=== PATIENT | female | born 1940 | race Caucasian/White ===

== ENCOUNTER 2018-04-29 21:25 | Inpatient (IN) | payer MEDICARE, OTHER ==
[~2018-04-29] VITALS: Ht 157.5 cm; Wt 83.5 kg
[~2018-04-29 21:25] MED LIST: ACETAMINOPHEN650 M5 PO; ACYCLOVIR 400400 MG PO; ASPIRIN81 M2 PO; BAYER CHEWABLE81 MG PO; CARAFATE 1 GM TA1 G1 PO; CELEXA 10 MG TA10 M1; CELEXA40 MG PO; CLOTRIMAZOLE-BE15 GM TOP; DIFLUCAN150 MG PO; GI COCKTAIL PO; GLUCOPHAGE1000 MG PO; LANTUS SUBQ; LANTUSSOLASTAR SUBQ; LISINOPRIL2.5 MG PO; LISINOPRIL20 MG PO; LOVASTAT10; LOVASTAT40 PO; PANTOPRAZOLE SO40 M1 PO; VICTOZA0.6 MG/0.1 SUBQ
[2018-04-29 21:26] VITALS: BP 203/83
[2018-04-29 22:00] LABS: ABSOLUTE LYMPHOCYTES 0.7 thou/uL (0.8-5.3); ABSOLUTE MONOCYTES 0.3 thou/uL (0.0-1.2); ABSOLUTE NEUTROPHILS 3.2 thou/uL (1.6-8.1); BASOPHILS 0.6 %; EOSINOPHILS 1.1 %; HEMATOCRIT 33.6 % (37.0-47.0); HEMOGLOBIN 11.2 gm/dL (12.0-15.0); LYMPHOCYTES 16.3 %; MCH 31.4 pg (26.0-34.0); MCHC 33.3 g/dL (28.0-37.0); MCV 94.3 fL (80.0-100.0); MONOCYTES 6.2 %; MPV 9.5 fl. (7.2-11.1); NUCLEATED RBCS 0 /100WBC; PLATELET COUNT* 209 thou/uL (150-400); POLYS 75.8 %; RBC 3.56 mil/uL (4.20-5.00); RDW-CV 13.2 % (10.5-14.5); WBC 4.2 thou/uL (4.0-11.0)
[2018-04-29 22:22] LABS: CALCIUM 8.8 mg/dL (8.5-10.1); CREATININE 1.5 mg/dL (0.6-1.3); POTASSIUM 4.7 mmol/L (3.5-5.1)
[2018-04-29 22:27] LABS: TOTAL BILIRUBIN 0.2 mg/dL (<0.1-1.0); TOTAL PROTEIN 6.3 g/dL (6.4-8.2)
[2018-04-29] MEDS ORDERED: CENTRUM SILVER1 EAC4 PO (22:46)
[2018-04-29] MEDS ORDERED: AMARYL4 MG PO (22:47)
[2018-04-29] MEDS ORDERED: METOPROLOL SUCC50 MG PO (22:48)
[2018-04-29] MEDS ORDERED: AIRBORNE EFFER1 EACH PO ×2 (22:49)
[2018-04-29] MEDS ORDERED: SYNTHROID100 MC1 PO (22:50)
[2018-04-30 03:41] VITALS: BP 182/90
[2018-04-30 08:02] VITALS: BP 170/83
[2018-04-30 10:46] LABS: CALCIUM 9.2 mg/dL (8.5-10.1); CREATININE 1.6 mg/dL (0.6-1.3); MAGNESIUM 1.8 mg/dL (1.8-2.4); POTASSIUM 4.5 mmol/L (3.5-5.1)
[2018-04-30 16:43] VITALS: BP 178/75
[2018-05-01 00:32] VITALS: BP 119/77
[2018-05-01 09:24] VITALS: BP 154/84
[2018-05-01 10:04] VITALS: BP 154/84
[2018-05-01 12:25] VITALS: BP 154/84
== END 2018-05-01 12:28 | disposition home or self-care (01) | DRG 637 ==
LOC: M.ERS 21:25 → M.3W 04-30 00:55 → M.TBA-ER 04-30 00:55 → M.3W 04-30 00:55
PROVIDERS: Emergency Medicine; Internal Medicine; ADMIT Internal Medicine
DX: E11.649 Type 2 diabetes mellitus with hypoglycemia without coma (principal); G93.41 Metabolic encephalopathy; E87.1 Hypo-osmolality and hyponatremia; E78.5 Hyperlipidemia, unspecified; I10 Essential (primary) hypertension; N17.9 Acute kidney failure, unspecified; Z79.4 Long term (current) use of insulin; Z90.710 Acquired absence of both cervix and uterus; Z85.42 Personal history of malignant neoplasm of other parts of uterus

== ENCOUNTER 2019-06-09 11:36 | Inpatient (IN) | payer MEDICARE, OTHER ==
[~2019-06-09] VITALS: Ht 157.5 cm; Wt 82.6 kg
--- NOTE | ~2019-06-09 | CON ---
[address] [address] CONSULTATION Name: ERICKA IBRAHIM Room: [address] IN M.R.#: [id number] Admission: 06/09/19 Attend Phys: Roger James MD Discharge: Date of : 44 Report #: [id number] THIS REPORT FOR: //name// CC: Roger Magana DATE OF SERVICE: 06/10/2019 HISTORY OF PRESENT ILLNESS: A 78-year-old female patient was seen by me for an episode of confusion, some speech difficulty and somebody noticed right-sided weakness. Those symptoms have resolved and the patient is back to her baseline. She does not know what brought this episode on, but this morning, her blood sugar was fluctuating going very low and very high. She had these episodes before also. REVIEW OF SYSTEMS: positive for diabetes and she has hyperlipidemia, uterine cancer. Her blood sugar has been fluctuating. She has a history of hypothyroidism, GERD, varicose vein, gastroparesis, and dyslipidemia. She thinks her memory is at her baseline. In fact, she is feeling back to her baseline. A 14-point review of system was carried out and was otherwise noncontributory. PAST MEDICAL HISTORY: Positive for diabetes. FAMILY HISTORY: Negative for early age stroke. SOCIAL HISTORY: She does not smoke or drink any alcohol. PHYSICAL EXAMINATION: GENERAL: Indicates she is alert. She is responsive. She can follow simple commands. She is oriented. NEUROLOGIC: Her speech, concentration and fund of knowledge are at her baseline. Cranial nerve examination 2-12 looks unremarkable. Strength, sensation, reflexes and tone are symmetrical. I could not look at the patient's fundus. LUNGS: She has no respiratory difficulty. FUNDUS: Examination could not be done. CARDIAC: Examination is unremarkable. VITAL SIGNS: Her blood pressure is 150/62, respiration is 18, pulse is 62, and temperature is 98.2. LABORATORY DATA: Labs indicated white count of 5.7. Sodium is 143. MRI was ordered this morning and does not show any acute changes. IMPRESSION: It is possible that the patient's episode were because of the patient's fluctuating blood sugar. She is already on [place] [address] CONSULTATION Name: ERICKA IBRAHIM Faviola Room: [address] IN [facility]#: [id number] Admission: 06/09/19 Attend Phys: Roger James MD Discharge: Date of : 44 Report #: [id number] on statin. I am not sure what else can be done in this patient except continue to watch and do more aggressive therapy if she has more symptoms. Thank you very much for this referral. By: 31 Parkeyana Ortiz MD /nt
--- NOTE | ~2019-06-09 | CON ---
[address] [address] CONSULTATION Name: ERICKA IBRAHIM Room: [address] IN M.R.#: [id number] Admission: 06/09/19 Attend Phys: Roger James MD Discharge: Date of : 44 Report #: [id number] THIS REPORT FOR: //name// CC: Roger Magana DO DICTATED BY: Leah Conner [facility] DATE OF SERVICE: 06/11/2019 Please note at the time of this dictation, the patient was seen and physically examined by myself. REASON FOR CONSULTATION: Abdominal pain and nausea with eating. HISTORY OF PRESENT ILLNESS: This is a 78-year-old female who presented to the Emergency Room mainly for hypo and hyperglycemic events and causing some mental confusion in which she was brought in. It was also noted she had an elevated troponin level at that time and is being followed by Cardiology and doing a full evaluation regarding that. In talking with the patient, she has been noted nausea after eating along with abdominal pain. She states she will quit eating because of all the symptoms. At times when she does eat, she may feel like she gets full very quickly and has had some occasional vomiting of the food that she ate. She denies any difficulty with swallowing and does not have any of these symptoms unless associated with eating. The patient does have a longstanding history of taking PPI for her acid reflux. Last EGD was in 2012 that showed completely normal upper esophagus, stomach and first part of the small intestine. She was to continue with Protonix daily and Pepcid as well. The patient did have a colonoscopy in 02/2017 that showed diverticulosis in the sigmoid colon and nonthrombosed external hemorrhoids, otherwise completely normal and in our chart, she has never had a gastric emptying test performed. Also, in talking with the patient, she states she had had this intermittently in the past, but here recently her symptoms of nausea and abdominal pain post-eating has becoming more frequent in nature. ALLERGIES: No known drug allergies. MEDICATIONS: From home include metoprolol, Synthroid, Blanco, pantoprazole, clotrimazole, acetaminophen, Centrum, Airborne, Lipitor, loratadine, NovoLog, Glucophage and Zestril. PAST MEDICAL HISTORY: Diabetic, hypertension, hyperlipidemia, osteoarthritis, high cholesterol, varicose veins, GERD and hypothyroid. PAST SURGICAL HISTORY: Hysterectomy [place] [address] CONSULTATION Name: ERICKA IBRAHIM Faviola Room: [address]#: [id number] Admission: 06/09/19 Attend Phys: Roger James MD Discharge: Date of : 44 Report #: [id number] FAMILY HISTORY: Noncontributory. SOCIAL HISTORY: Denies any alcohol, tobacco or illegal drug use. REVIEW OF SYSTEMS: Twelve-point review of systems is essentially negative except what is mentioned in the HPI. PHYSICAL EXAMINATION: VITAL SIGNS: Temperature 36.5, pulse 85, respirations 17 and blood pressure 195/82. HEART: Regular rate and rhythm. LUNGS: Diminished, but clear. ABDOMEN: Soft, positive bowel sounds in all 4 quadrants with no masses or tenderness noted. LABORATORY DATA: Hemoglobin is 11.5, white count is 5.7 and platelets are 205. GFR is 27. PT is 10.6 and INR is 1. IMPRESSION: 1. Abdominal pain, postprandial. 2. Nausea, postprandial. 3. Early satiety. 4. Gastroesophageal reflux disease. 5. Elevated troponin. 6. Chronic kidney disease. 7. History of uterine cancer. PLAN: 1. Await for Cardiology evaluation. 2. When okay with Cardiology, would plan on doing an EGD to further evaluate her postprandial nausea and abdominal pain. 3. The patient will need a gastric emptying test 4 hours to be done as an outpatient since the equipment is unavailable at this time during her hospital stay. Thank you for allowing us to participate in this patient's care. Please do not hesitate to call with any questions in regard to this consult. By: 1014 [id number] Quinteros MD /poly
[~2019-06-09 11:36] MED LIST changes: +AIRBORNE EFFER1 EACH PO; +AMARYL4 MG PO; +CENTRUM SILVER1 EAC4 PO; +METOPROLOL SUCC50 MG PO; +SYNTHROID100 MC1 PO
[2019-06-09 11:44] VITALS: BP 190/92
[2019-06-09] MEDS ORDERED: LORATIDINE 10 M10 M1 PO (11:48)
[2019-06-09] MEDS ORDERED: LIPITOR40 MG PO (11:48)
[2019-06-09] MEDS ORDERED: NOVOLIN 70100 UNIT/3 SUBQ (11:49)
[2019-06-09 12:43] LABS: HEMATOCRIT 33.6 % (37.0-47.0); HEMOGLOBIN 11.5 gm/dL (12.0-15.0); MCH 32.1 pg (26.0-34.0); MCHC 34.2 g/dL (28.0-37.0); MCV 93.8 fL (80.0-100.0); MPV 9.8 fl. (7.2-11.1); NUCLEATED RBCS 0 /100WBC; PLATELET COUNT* 205 thou/uL (150-400); RBC 3.58 mil/uL (4.20-5.00); RDW-CV 13.1 % (10.5-14.5); WBC 5.7 thou/uL (4.0-11.0)
[2019-06-09 12:47] LABS: CALCIUM 8.5 mg/dL (8.5-10.1); CREATININE 1.8 mg/dL (0.6-1.3); POTASSIUM 4.4 mmol/L (3.5-5.1)
[2019-06-09 12:58] LABS: ALBUMIN 3.1 g/dL (3.4-5.0); MAGNESIUM 1.6 mg/dL (1.8-2.4); TOTAL BILIRUBIN 0.3 mg/dL (<0.1-1.0); TOTAL PROTEIN 6.9 g/dL (6.4-8.2)
[2019-06-09 13:06] LABS: BE -3.4 mmol/L (-2 to +3); PCO2 39.9 mmHg (35.0-45.0); PO2 70.9 mmHg (75.0-100.0); pH 7.355 (7.340-7.450)
[2019-06-09 13:30] LABS: ABSOLUTE BASOPHILS 0.1 thou/uL (0.0-0.2); ABSOLUTE EOSINOPHILS 0.6 thou/uL (0.0-0.7); ABSOLUTE LYMPHOCYTES 1.1 thou/uL (0.8-5.3); ABSOLUTE MONOCYTES 0.3 thou/uL (0.0-1.2); ABSOLUTE NEUTROPHILS 3.5 thou/uL (1.6-8.1); PLATELET ESTIMATE ADEQUATE
[2019-06-09 13:31] LABS: HYPOCHROMASIA Occasional
[2019-06-09 14:36] LABS: URINE BILIRUBIN NEGATIVE (Negative); URINE BLOOD 1+ (Negative); URINE CLARITY CLEAR; URINE COLOR YELLOW; URINE GLUCOSE-RANDOM 1+ (Negative); URINE KETONES NEGATIVE (Negative); URINE LEUKOCYTES-REFLEX NEGATIVE (Negative); URINE NITRITE-REFLEX NEGATIVE (Negative); URINE PROTEIN 3+ (Negative); URINE UROBILINOGEN 0.2 E.U./dl (0.2-1.0)
--- NOTE | 2019-06-09 14:41 | EKG ---
[place] [address] ELECTROCARDIOGRAM REPORT Name: ERICKA IBRAHIM Room: [facility]#: [id number] Admission: 06/09/19 Attend Phys: Discharge: Date of : 44 Report #: [id number] THIS REPORT FOR: //name// [facility] ED Test Date: 2019-06-09 Test Time: 12:44:55 Pat Name: ERICKA IBRAHIM Department: Room: Gender: F Cashier Host/Hostess: : 1940 Requested By: Kairs Rodriguez Order Number: [id number] MD: Dank Green Measurements Intervals [place] Rate: 77 P: 13 ND: 187 QRS: -10 QRSD: 87 T: 158 QT: 392 QTc: 444 Interpretive Statements Sinus rhythm Nonspecific repol abnormality, diffuse leads Compared to ECG 02/05/2013 18:28:07 Early repolarization now present Sinus tachycardia no longer present ST (T wave) deviation no longer present Electronically Signed On 06-09-2019 14:40:28 CALCULATOR OPERATOR by Dank Green [email or web address] <ELECTRONICALLY SIGNED> By: Dank Green MD, [facility] 06/09/19 1440 1244 1244 Dank Green MD, [facility] /EPI
[2019-06-09 14:46] LABS: SQUAMOUS 4-10 Moderate /LPF (0-3)
[2019-06-09 14:50] LABS: MUCUS 0-3 Light strn/LPF (None Seen); URINE RBC 3-10 Few /HPF (0-2); URINE WBC-REFLEX 0-5 Rare /HPF (0-5)
[2019-06-09 14:52] LABS: CRYSTALS None Seen /LPF (None Seen); FINE GRANULAR CASTS 0-3 Few /LPF (None Seen); HYALINE CASTS 0-3 Few /LPF (None Seen)
[2019-06-09 18:39] VITALS: BP 149/55
[2019-06-09 19:30] VITALS: BP 160/52
[2019-06-09 22:23] VITALS: BP 138/51
[2019-06-10 00:02] VITALS: BP 155/74
[2019-06-10 04:09] LABS: GLYCOHEMOGLOBIN (HGB A1C) 7.6 % (4.8-5.6)
[2019-06-10 04:17] VITALS: BP 122/53
[2019-06-10 06:26] LABS: ANION GAP 8 mmol/L (7-16); BUN 25 mg/dL (7-18); CALCIUM 8.1 mg/dL (8.5-10.1); CHLORIDE 108 mmol/L (98-107); CHOLESTEROL 143 mg/dL (<200); CO2 27 mmol/L (21-32); CREATININE 1.8 mg/dL (0.6-1.3); GLUCOSE 163 mg/dL (70-99); HDL CHOLESTEROL 37 mg/dL (>40); LDL CHOLESTEROL 72 mg/dL (<100); MAGNESIUM 1.7 mg/dL (1.8-2.4); POTASSIUM 4.5 mmol/L (3.5-5.1); SODIUM 143 mmol/L (136-145); TC:HDL 3.9 Ratio (Not establshd); TRIGLYCERIDE 174 mg/dL (<150); VLDL 35 mg/dL (<40)
[2019-06-10 06:28] LABS: SERUM ASSESSMENT Clear
--- NOTE | 2019-06-10 07:00 | NUR ---
PATIENT ARRIVED TO UNIT APPROX 2130. SHORTLY AFTER ARRIVAL, PT C/O HEADACHE AND SINUS CONGESTION. RELIEVED WITH A WARM COMPRESS AND MEDICATIONS. PATIENT ABLE TO SLEEP THROUGHOUT SHIFT. PATIENT NPO FOR STRESS TEST THIS AM. CALL LIGHT WITHIN REACH
[2019-06-10 08:00] VITALS: BP 150/62
--- NOTE | 2019-06-10 15:01 | NUR ---
Spoke with Pt's son in [facility]. Pt is A&O. Resides at home with her son. Son works all day, Pt has been independent. Pt uses a cane for mobility and has a shower chair. Pt has a cpap, but son states that Pt is not very compliant with it. No hx of HH, but DIL states that Pt's PCP is going to try and get her some in home care. No hx of SNF. Goal is home at sc.
[2019-06-10 19:30] VITALS: BP 159/88
[2019-06-10 23:41] VITALS: BP 166/78
[2019-06-11] VITALS (14 sets, daily range): BP systolic 137–196; BP diastolic 61–82
--- NOTE | 2019-06-11 04:22 | NUR ---
ASSUMED CARE OF PT AT 1900. PT IS ALERT AND ORIENTED. VSS. PERRLA. NO COMPLAINTS OF PAIN. PT IS IN SINUS RYTHM ON THE TELEMETRY. PT IS RESTING COMFORTABLY IN BED. RESPIRATIONS ARE EVEN AND NONLABORED. WILL CONTINUE TO MONITOR PT.
[2019-06-11 04:44] LABS: APTT 23.2 Seconds (25.0-31.3); PROTIME 10.6 Seconds (9.20-11.50)
[2019-06-11 04:45] LABS: CALCIUM 8.4 mg/dL (8.5-10.1); CREATININE 1.8 mg/dL (0.6-1.3); MAGNESIUM 1.9 mg/dL (1.8-2.4)
--- NOTE | 2019-06-11 12:49 | CARDNUC ---
[place] [address] CARDIAC NUCLEAR IMAGING REPORT Name: ERICKA IBRAHIM Room: [address]#: [id number] Admission: 06/09/19 Attend Phys: Roger James, Discharge: Date of : 44 Date of Service: 06/11/19 1248 Report #: [id number] THIS REPORT FOR: //name// APPROVED REPORT Imaging Protocol: Stress Tc-99m/Rest Tc-99m 2 days Study performed: 06/09/2019 16:26:00 Indication: Troponin elevation Patient Location: In-Patient Stress Tech: Elena Cortez Stress Nurse: Penny Mancia RN NM Tech:KIKO Rodriguez Ht: 5 ft 2 in Wt: 180 lbs BSA: 1.83 m2 BMI: 32.91 Medical History Medical History: hyperlipidemia, hypertension, diabetes Medications: lisinopril, metoprolol, asa-81, lipitor, hydralazine Allergies: nkda Cardiac Risk Factors: age, hyperlipidemia, hypertension, diabetes Previous Cardiac Procedures: none Exercise History: Sedentary metoprolol not held in am Resting Data Rest SPECT myocardial perfusion imaging was performed in supine position 30 minutes following the intravenous injection of 33.5 mCi of Tc-99m Sestamibi. Time of rest injection: 0945 Date: 06/11/2019 The images were gated to evaluate regional wall motion and calculate left ventricular ejection fraction. Administration Route: IV Administration Site: [facility] Pharmacologic Stress Pharmacologic stress test was performed by injecting Regadenoson 0.4 mg IV push over 10-15 seconds immediately followed by the intravenous injection of 32.0 mCi of Tc-99m Sestamibi. Time of stress injection: 1120 Date: 06/10/2019 Administration Route: IV Administration Site: [place] [address] CARDIAC NUCLEAR IMAGING REPORT Name: ERICKA IBRAHIM Room: [address]#: [id number] Admission: 06/09/19 Attend Phys: Roger James, Discharge: Date of : 44 Date of Service: 06/11/19 1248 Report #: [id number] Gated Stress SPECT was performed 40 minutes after stress injection. The images were gated to evaluate regional wall motion and calculate left ventricular ejection fraction. Prone imaging was performed. Stress Test Details Stress Test: Pharmacologic stress testing performed using 0.4 mg of regadenoson per 5 mL given IV over 10 seconds. Reason for pharmacologic stress test: arthritis. HR Max Heart Rate (APMHR): 144 bpm Resting HR: 67 bpm Target HR (85% APMHR): 122 bpm Max HR Achieved: 83 bpm % of APMHR: 57 Recovery HR: 91 bpm BP Resting BP: 148/83 mmHg Max BP: 197/90 mmHg Recovery BP: 172/91 mmHg ECG Resting ECG: Sinus Rhythm, nonspecific ST-T abnormalities Stress ECG: Sinus Rhythm, nonspecific ST-T abnormalities ST Change: None Arrhythmia: None Recovery ECG: Sinus Rhythm, nonspecific ST-T abnormalities Recovery ST Change: None Recovery Arrhythmia: None Clinical Reason for Termination: Completed protocol Exercise duration: 0 min sec Exercise capacity: 1 METs The patient tolerated Lexiscan infusion without significant cardiac symptoms. Stress ECG Conclusion The baseline 12-lead EKG shows sinus rhythm with diffuse ST segment depression. EKGs obtained during and post Lexiscan infusion show sinus rhythm with continued diffuse ST segment depression. There were no stress-induced [place] [address] CARDIAC NUCLEAR IMAGING REPORT Name: ERICKA IBRAHIM Room: [address]#: [id number] Admission: 06/09/19 Attend Phys: Roger James, Discharge: Date of : 44 Date of Service: 06/11/19 1248 Report #: [id number] Study: Good Artifact: No artifact Study Data At rest, the left ventricular ejection fraction was 69%.. Post stress, the left ventricular ejection was 55%.. TID = 1.38. Perfusion Myocardial perfusion images at rest show a moderate size mild intensity defect involving the mid to distal inferolateral wall. No other defects are seen on resting images. Perfusion images obtained at stress show a very large severe intensity defect involving the basal to apical lateral and inferolateral wall. Wall Motion Global mild hypokinesis more pronounced in the inferior lateral wall. Nuclear Conclusion ECG Findings: equivocal Clinical Findings: negative for ischemia Nuclear Findings: positive for ischemia Exercise Capacity: not assessed Left Ventricular Function: abnormal Risk Study: high Perfusion images suggest a large region of ischemia involving the lateral and inferolateral wall with possibly focal infarct midportion of this region. LV systolic function appears mildly decreased with wall motion abnormalities as outlined above. Transient ischemic dilatation is elevated suggesting the possibility of multivessel disease. This is a high risk study. <Conclusion> The baseline 12-lead EKG shows sinus rhythm with diffuse ST segment depression. EKGs obtained during and post Lexiscan infusion show sinus rhythm with continued diffuse ST segment depression. There were no stress-induced arrhythmias. <ELECTRONICALLY SIGNED> By: Dank rGeen MD, FACC 06/11/19 1248 1248 1248 Dank Green MD, FACC /INF
--- NOTE | 2019-06-11 15:15 | NUR ---
PT BACK FROM CIVIL SERVICE CLERK. VSS ON 2L NC. DRESSING CDI.SITE IS SOFT.PULSES STRONG AND EQUAL IN BUE AND BLE. SENSATINS IN TACT. PT DROWSY BUT EASILY AROUSED.NO C/O PAIN OR NAUSEA. PT BEDREST COMPLETE AT 1900.FALL PRECAUTIONS IN PLACE. WCTM
--- NOTE | 2019-06-11 16:17 | 2DMMODE ---
[place] [address] 2 D/M-MODE ECHOCARDIOGRAM Name: ERICKA IBRAHIM Room: [address] IN [facility]#: [id number] Admission: 06/09/19 Attend Phys: Roger James, Discharge: Date of : 44 Date of Service: 06/11/19 1616 Report #: [id number] THIS REPORT FOR: //name// APPROVED REPORT Study performed: 06/11/2019 11:33:04 EXAM: Comprehensive 2D, Doppler, and color-flow Echocardiogram Patient Location: In-Patient Room #: [facility] Status: routine BSA: 1.85 HR: 67 bpm BP: 195/82 mmHg Rhythm: NSR Other Information Study Quality: Good Indications Elevated Troponin Hypertension/HDD 2D Dimensions IVSd: 15.33 (7-11mm) LVOT Diam: 19.45 (18-24mm) LVDd: 40.86 mm PWd: 14.31 (7-11mm) Ascending Ao: 33.59 (22-36mm) LVDs: 28.63 (25-40mm) Aortic Root: 32.87 mm Volumes Left Atrial Volume (Systole) LA ESV Index: 46.80 mL/m2 Aortic Valve AoV Peak José Manuel.: 1.67 m/s AO Peak Gr.: 11.13 mmHg LVOT Max P.74 mmHg AO Mean Gr.: 6.48 mmHg LVOT Mean P.89 mmHg LVOT Max V: 1.20 m/s AO V2 VTI: 38.50 cm LVOT Mean V: 0.79 m/s SHELBY (VTI): 2.43 cm2 LVOT V1 VTI: 31.53 cm Mitral Valve MV Mean Gr.: 2.69 mmHg E/A Ratio: 0.79 MV Decel. Time: 308.72 [place] [address] 2 D/M-MODE ECHOCARDIOGRAM Name: ERICKA IBRAHIM Room: [address] IN ..#: [id number] Admission: 06/09/19 Attend Phys: Roger James, Discharge: Date of : 44 Date of Service: 06/11/19 1616 Report #: [id number] MV E Max José Manuel.: 0.89 m/s MV PHT: 89.53 ms MVA (PHT): 2.46 cm2 TDI E/Lateral E': 14.83 E/Medial E': 12.71 Medial E' José Manuel.: 0.07 m/s Lateral E' José Manuel.: 0.06 m/s Pulmonary Valve PV Peak José Manuel.: 0.97 m/s PV Peak Gr.: 3.79 mmHg Left Ventricle The left ventricle is normal size. There is normal LV segmental wall motion. Moderate concentric left ventricular hypertrophy. Left ventricular systolic function is normal. The left ventricular ejection fraction is within the normal range. LVEF is 60-65%. Grade I - abnormal relaxation pattern. Right Ventricle The right ventricle is normal size. The right ventricular systolic function is normal. Atria Left atrium is moderately dilated. The right atrium size is normal. Aortic Valve Mild aortic valve sclerosis. No aortic regurgitation is present. There is no aortic valvular stenosis. Mitral Valve There is mitral annular calcification. Mild mitral regurgitation. No evidence of mitral valve stenosis. Tricuspid Valve The tricuspid valve is normal in structure. Unable to assess PA pressure. Trace tricuspid regurgitation. Pulmonic Valve The pulmonary valve is normal in structure. There is no pulmonic valvular regurgitation. Great Vessels The aortic root is normal in size. IVC is normal in size and collapses >50% [place] [address] 2 D/M-MODE ECHOCARDIOGRAM Name: ERICKA IBRAHIM Faviola Room: [address]#: [id number] Admission: 06/09/19 Attend Phys: Roger James, Discharge: Date of : 44 Date of Service: 06/11/19 1616 Report #: [id number] Pericardium There is no pericardial effusion. <Conclusion> The left ventricle is normal size. Moderate concentric left ventricular hypertrophy. Left ventricular systolic function is normal. The left ventricular ejection fraction is within the normal range. LVEF is 60-65%. Grade I - abnormal relaxation pattern. The right ventricle is normal size. Left atrium is moderately dilated. The right atrium size is normal. Mild aortic valve sclerosis. No aortic regurgitation is present. There is no aortic valvular stenosis. There is mitral annular calcification. Mild mitral regurgitation. No evidence of mitral valve stenosis. The tricuspid valve is normal in structure. The aortic root is normal in size. IVC is normal in size and collapses >50% with inspiration. There is no pericardial effusion. There is normal LV segmental wall motion. <ELECTRONICALLY SIGNED> By: Tomás Baker MD, FACC 06/11/19 1616 161 [id number] Tomás Baker MD, FACC /INF
--- NOTE | 2019-06-11 20:17 | NUR ---
PT IS RESTING WITH FAMILY AT BESIDE. VSS ON RA. NO C/O PAIN OR NAUSEA. DISCUSSED WTIH PT RESULTS/FINDINGS OF CATH. PT EDUCATED ON DISEASE PROCESS. PT IS COMFORTABLE WITH OUTCOME AND PLAN OF CARE. PT IS TOLERATING DIET WITHOUT NAUSEA. FALL PRECAUTIONS IN PLACE
[2019-06-12] VITALS: BP 169/62
--- NOTE | 2019-06-12 02:13 | NUR ---
ASSUMED CARE OF PT AT 1900. PT IS ALERT AND ORIENTED. VSS. PERRLA. NO COMPLAINTS OF PAIN. STEADY GAIT. NO BLEEDING AT GROIN CATH SITE. PT IS IN SINUS RYTHM ON THE TELEMETRY. PT IS RESTING COMFORTABLY IN BED. RESPIRATIONS ARE EVEN AND NONLABORED. WILL CONTINUE TO MONITOR PT.
[2019-06-12 04:15] VITALS: BP 173/69
[2019-06-12 04:54] LABS: CALCIUM 8.5 mg/dL (8.5-10.1); CREATININE 1.9 mg/dL (0.6-1.3); MAGNESIUM 1.7 mg/dL (1.8-2.4); POTASSIUM 4.2 mmol/L (3.5-5.1)
[2019-06-12 08:00] VITALS: BP 178/73
--- NOTE | 2019-06-12 14:25 | NUR ---
Spoke with son, plan is for Pt to dc to son and PASCU[place] house for a few days, address:[address] [place] [address] [place] [address], . Pt wants to use [employer] , faxed facesheet and H&P, anticipate dc either later today or tomorrow. Orders will need to be faxed to [phone]
[2019-06-12] MEDS ORDERED: PLAVIX 75 MG TA75 MG PO (14:41)
[2019-06-12] MEDS ORDERED: LIPITOR80 MG PO (14:41)
[2019-06-12] MEDS ORDERED: IMDUR 30 MG TAB30 M1 PO (14:41)
[2019-06-12 14:58] VITALS: BP 178/73
[2019-06-12 16:03] VITALS: BP 178/73
--- NOTE | 2019-06-12 16:49 | NUR ---
RECEVIED REPORT. ASSUMED CARE OF PT AROUND 0730. PT A&O X4. VSS. TAPE TRANSFERRER IN PLACE TRACING SR WITH NO CHANGES THIS SHIFT. AM ASSESSMENT AND VITALS COMPLETED CHARTED. MEDS PER EMAR. PT DENIED PAIN OR DISCOMFORT THIS SHIFT. PT SEEN BY SPECIALTIES - ALL SIGNED OFF. PLAN FOR EGD OUTPATIENT. DISCHARGE ORDERS RECEIVED. DISCHARGE COMPLETED DOCUMENTED. DISCHARGE SUMMARY, CARE NOTES AND SCRIPTS GONE OVER WITH PT AND PT'S SON - BOTH COMMUNICTE UNDERSTANDING. CARE NOTES GIVEN. PT AWARE OF SCRIPTS SENT TO PHARMACY. PT AWARE OF MEDICATION CHANGES. HOME HEALTH SET UP. IV AND TAPE TRANSFERRER REMOVED. ALL BELONGINGS GATHERED AND SENT HOME WITH PT. PT LEFT UNIT IN WC WITH NURSING STAFF. PT LEFT HOSPITAL IN CAR WITH SON.
--- NOTE | 2019-06-13 11:58 | CARD ---
[address] [address] CARDIAC CATH REPORT Name: ERICKA IBRAHIM Room: [address]#: [id number] Admission: 06/09/19 Attend Phys: Roger James MD Discharge: 06/12/19 Date of : 42 Report #: [id number] THIS REPORT FOR: //name// APPROVED REPORT Study performed: 06/11/2019 13:56:47 Patient Details Patient Status: In-Patient Room #: 215 The patient is a 78 year-old female Event Personnel Dank Green Help Desk Analyst, Castro Bauman RTR Monitor, Martina Richter RN RN, Cher Mccoy RTR Scrub, Abhinav Jones PATIENT INFORMATION COORDINATOR Scrub Procedures Performed Left Heart Cath w/or w/o Coronaries [id number] [facility] Hemostasis w/ Mynx , Left Ventriculogram Admission/Lab Medications/Medications given during procedure Lidocaine Subcut 20 ml, Fentanyl IV 25 mcg, Midazolam (Versed) IV 2 mg, Hydralazine (Apresoline) IV 10 mg Procedure Narrative The patient was brought electively to the Cardiac Catheterization Laboratory and was prepped and draped in a sterile manner. The right femoral was infiltrated with 2% Lidocaine subcutaneous anesthesia. A 6fr Ultimum Sheath sheath was inserted into the right femoral artery. Coronary angiography was performed using coronary diagnostic catheters. The right coronary system was accessed and visualized with a Diagnostic JR4 6Fr catheter. The left coronary system was accessed and visualized with a Diagnostic JL4 6Fr catheter. The left ventricle was accessed and visualized with a Diagnostic JR4 6Fr catheter. Closure device was deployed with a 6 Fr Mynx. The patient tolerated the procedure well and there were no complications associated with the procedure. There was no hematoma. Intraoperative Conscious Sedation Sedation start time: 1435 Case end Time: 1444 Fentanyl 25 mcg Versed 2 mg Fluoro Time: 2.2 [place] [address] CARDIAC CATH REPORT Name: ERICKA IBRAHIM Room: [address]#: [id number] Admission: 06/09/19 Attend Phys: Roger James MD Discharge: 06/12/19 Date of : 42 Report #: [id number] Dose: DAP 27220 cGycm2 906.26 mGy Contrast Type and Amount: Visipaque 95 ml Coronary Angiography The patient's coronary anatomy is right dominant. Diagnostic Cath Left Main The left main is short and free of significant disease and bifurcates into a circumflex and left anterior descending coronary artery. The left anterior descending coronary artery is minimally plaqued possibly. The mid and distal vessel is diffusely diseased with up to 90% LAD Narrowing in multiple locations. Diagonal 1 The first diagonal branch is moderately plaqued without hemodynamically significant stenoses. Diagonal 2 The second diagonal branch has an 80% ostial stenosis moderate plaquing diffusely. Circumflex The circumflex coronary artery is minimally plaqued in its proximal mid and distal portion. OM1 A first obtuse marginal branch is totally occluded in its midportion and fills very faintly by left to left collaterals distally. OM2 A small second obtuse marginal branch is diffusely diseased up to 70%. Right Coronary The right coronary artery is moderately plaqued throughout with a 50% distal stenosis. R PDA Posterior descending artery has a diffuse plaquing with 70% mid stenosis. RPLV The right posterior lateral branch is diffusely plaqued with 50% mid stenosis. Hemodynamics The aortic pressure is 178/69 mmHg with a mean of 112 mmHg. The left ventricular pressure is 167/13 mmHg with a mean of mmHg. The left ventricular end diastolic pressure is 20 mmHg. Conclusion 1. Diffuse three-vessel coronary artery disease as outlined above. 2. Moderately elevated left ventricular end-diastolic pressure consistent with acute on chronic diastolic heart failure. Recommendations 1. The diffuse nature of the patient's coronary artery disease does not appear amenable [place] [address] CARDIAC CATH REPORT Name: ERICKA IBRAHIM Room: [address] IN M.R.#: [id number] Admission: 06/09/19 Attend Phys: Roger James MD Discharge: 06/12/19 Date of : 44 Report #: [id number] 2. Continue aggressive risk factor modification and medical management. <ELECTRONICALLY SIGNED> By: Dank Green MD, FACC 06/13/19 1157 1157 [id number] Green MD, FACC /INF
== END 2019-06-12 16:30 | disposition home health service (06) | DRG 286 ==
LOC: M.ERS 11:36 → M.TBA-ER 15:34 → M.2W 15:34
PROVIDERS: Personal Emergency Response Attendant; ADMIT Internal Medicine
PROC: B215YZZ Fluoroscopy of Left Heart using Other Contrast (ICD-10-PCS; principal; 2019-06-11)
PROC: B211YZZ Fluoroscopy of Multiple Coronary Arteries using Other Contrast (ICD-10-PCS; principal; 2019-06-11)
PROC: 4A023N7 Measurement of Cardiac Sampling and Pressure, Left Heart, Percutaneous Approach (ICD-10-PCS; principal; 2019-06-11)
DX: I25.110 Atherosclerotic heart disease of native coronary artery with unstable angina pectoris (principal); G92 Toxic encephalopathy; I50.33 Acute on chronic diastolic (congestive) heart failure; N18.4 Chronic kidney disease, stage 4 (severe); I16.1 Hypertensive emergency; I67.4 Hypertensive encephalopathy; I13.0 Hypertensive heart and chronic kidney disease with heart failure and stage 1 through stage 4 chronic kidney disease, or unspecified chronic kidney disease; E11.65 Type 2 diabetes mellitus with hyperglycemia; I87.2 Venous insufficiency (chronic) (peripheral); E83.42 Hypomagnesemia; G89.29 Other chronic pain; M54.9 Dorsalgia, unspecified; K21.9 Gastro-esophageal reflux disease without esophagitis; E03.9 Hypothyroidism, unspecified; E78.00 Pure hypercholesterolemia, unspecified; M19.90 Unspecified osteoarthritis, unspecified site; E78.5 Hyperlipidemia, unspecified; E66.9 Obesity, unspecified; E11.22 Type 2 diabetes mellitus with diabetic chronic kidney disease; Z90.710 Acquired absence of both cervix and uterus; Z85.42 Personal history of malignant neoplasm of other parts of uterus; Z79.899 Other long term (current) drug therapy; Z79.4 Long term (current) use of insulin; Z79.82 Long term (current) use of aspirin; Z79.84 Long term (current) use of oral hypoglycemic drugs; Z72.0 Tobacco use; Z68.33 Body mass index [BMI] 33.0-33.9, adult; Y92.89 Other specified places as the place of occurrence of the external cause; Z28.21 Immunization not carried out because of patient refusal; K27.9 Peptic ulcer, site unspecified, unspecified as acute or chronic, without hemorrhage or perforation